=== PATIENT | male | born 1990 | race Two or more races ===

== ENCOUNTER 2018-01-07 14:33 | Emergency (ER) | payer OTHER ==
[~2018-01-07] VITALS: Ht 175.3 cm; Wt 81.6 kg
[~2018-01-07 14:33] MED LIST: AMOXICILLIN500 MG ORAL; IBUPROFEN600 MG ORAL; LIDOCAINE VISCO20 ML *
[2018-01-07] MEDS ORDERED: NKM (14:41)
[2018-01-07 14:45] VITALS: BP 123/74
--- NOTE | 2018-01-07 14:48 | Emergency Room Report ---
History of Present Illness General Chief Complaint: Medical Clearance Source: Patient Present Illness HPI 27yoM with a h/o heroin use p/w a feeling of anxiety brought in by police for OK to book Patient denies any pain, just feels tremulous and worried He is not a daily drinker Allergies: Coded Allergies: SHELLFISH DERIVED (Unverified Allergy, Unknown, 09/17/15) Uncoded Allergies: SHELL FISH (Allergy, Unknown, 09/17/15) Patient History Past Medical History: see triage record Reviewed Nursing Documentation: PMH: Agreed; PSxH: Agreed Nursing Documentation-PMH Past Medical History: No History, Except For History Of Psychiatric Problem: Yes - substance obuse Review of Systems Cardiovascular: Reports: no symptoms Skin: Reports: no symptoms Hematologic/Lymphatic: Reports: no symptoms Physical Exam Vital Signs Date Time Temp Pulse Resp B/P (MAP) Pulse Ox O2 Delivery O2 Flow Rate FiO2 01/07/18 14:38 97.5 115 23 123/74 98 Room Air 97.5 General Appearance: well appearing, no apparent distress Head: normocephalic, atraumatic Eyes: bilateral eye EOMI ENT: hearing grossly normal, normal voice Neck: full range of motion, supple Respiratory: no respiratory distress, speaking full sentences Cardiovascular #1: normal inspection, normal peripheral pulses, regular rate, rhythm, no edema, no gallop, no murmur, no rub Cardiovascular #2: 2+ carotid (R), 2+ carotid (L) Gastrointestinal: normal inspection, non tender, soft Rectal: deferred Genitourinary: normal inspection, no CVA tenderness Musculoskeletal: no calf tenderness Neurologic: alert, configuration technician III-XII nml as tested, motor strength/tone normal, normal gait Psychiatric: mood/affect normal Skin: no rash Lymphatic: normal inspection Medical Decision Making Diagnostic Impression: Primary Impression: Medical clearance for incarceration ER Course patient has a normal exam, do not suspect withdrawal, vital signs normal, will dc ok to book Last Vital Signs Date Time Temp Pulse Resp B/P (MAP) Pulse Ox O2 Delivery O2 Flow Rate FiO2 01/07/18 14:38 97.5 115 23 123/74 98 Room Air 97.5 Disposition: D/C TO LAW ENF[facility]CEMENT IN [facility] Condition: Stable Departure Forms: Detention Clearance MARIANO BARNETT M.D Jan 07, 2018 14:48
[2018-01-07] MEDS ORDERED: LORazepam 1mg tab ORAL ONE (15:00)
[2018-01-07 15:07] VITALS: BP 123/74
== END 2018-01-07 15:08 ==
LOC: EMR 15:06
DX: Z02.89 Encounter for other administrative examinations (principal); F11.10 Opioid abuse, uncomplicated; Z91.013 Allergy to seafood
CPT/HCPCS: 99283